=== PATIENT | female | born 1965 | race African-American/Black ===

== ENCOUNTER → 2021-12-22 | Outpatient (CLI) | payer OTHER ==
[~2021-12-22] MED LIST: CARAFATE 1GM1 G PO; CLARITIN 1010 MG/TAB PO; FLEXERIL 1010 MG/TAB PO; FLONASE NASAL S16 GM NS; IRON; NITROSTAT0.4 MG/TAB SL; OXY IR5 MG PO; PRILOSEC 20MG20 MG PO; TIROSINT75 MC1 PO; TOPROL XL 50MG50 MG PO; ULTRAM 50MG TAB50 MG PO; VENTOLIN0.09 MG IH; ZANTAC 150MG T150 MG PO
== END ==
LOC: COL.RAD 08:23
DX: M25.551 Pain in right hip (principal); M25.552 Pain in left hip; M25.561 Pain in right knee; M25.562 Pain in left knee